=== PATIENT | female | born 1955 | race Caucasian/White ===

== ENCOUNTER → 2016-10-14 | Outpatient (CLI) | payer BC | END | disposition home or self-care (01) | LOC: GMAM 17:21 | PROVIDERS: ATTEND Family Medicine | DX: R82.5 Elevated urine levels of drugs, medicaments and biological substances (principal); R82.99 Other abnormal findings in urine ==

== ENCOUNTER → 2016-10-17 | Outpatient (CLI) | payer BC ==
--- NOTE | 2016-10-18 09:05 | CT ---
EXAM DESCRIPTION: Chest w/Contrast CLINICAL HISTORY: 61 years,Female,COUGH COMPARISON: None TECHNIQUE: Multiple axial helical tomographic images were obtained of the chest with IV contrast, then reconstructed in the sagittal and coronal plane. This exam was performed using radiation doses that are As Low As Reasonably Achievable (ALARA). FINDINGS: Lung ordaz are clear. No consolidations or effusions or nodules except a 4 mm calcified granuloma in the right base. No pneumothoraces. Mediastinum demonstrates no adenopathy or masses. Heart size and pulmonary vascularity are unremarkable. Upper abdominal organs included in the exam demonstrate an ill-defined hyper remake region seen in the right anterior dome of the liver measuring 1.4 cm about in size. Soft tissues and bony elements are unremarkable. IMPRESSION: Unremarkable CT of the chest. There is however a small ill-defined area of enhancement changes seen in the right dome of the liver. This could be an hemangioma but recommend further evaluation with the CT scan of the liver with and without IV contrast but with delayed images. Electronically signed by: Eduar Hurst MD 10/18/2016 9:04 AM CDT
== END ==
LOC: CT 08:28
PROVIDERS: ATTEND Family Medicine
DX: R05 Cough (principal)

== ENCOUNTER → 2016-10-28 | Outpatient (CLI) | payer BC | END | disposition home or self-care (01) | LOC: GMAM 14:36 | PROVIDERS: ATTEND Family Medicine | DX: R82.99 Other abnormal findings in urine (principal) ==

== ENCOUNTER → 2016-11-19 | Outpatient (CLI) | payer BC ==
--- NOTE | 2016-11-19 11:48 | CT ---
EXAM DESCRIPTION: CT ABDOMEN AND PELVIS WITHOUT AND WITH CONTRAST CLINICAL HISTORY: NONSPECIFIC FINDINGS ON EXAM OF URINE COMPARISON: None Available. TECHNIQUE: CT of the abdomen and pelvis are performed prior to and during IV bolus administration of nonionic IV contrast. Oral contrast enhancement was not utilized This exam was performed according to our departmental dose-optimization program, which includes automated exposure control, adjustment of the mA and/or kV according to patient size and/or use of iterative reconstruction technique. FINDINGS: The lung bases demonstrate a tiny 3 mm calcified granuloma in the posterior right costophrenic angle and mild scarring anteriorly. Mild diffuse fatty replacement of the liver is present. There is a tiny estimated less than 1 cm faintly enhancing lesion in the lateral dome of the right lobe of the liver that is most suspicious for a small hemangioma. Correlation with hepatic sonography for further evaluation is recommended. The gallbladder is normally distended without ductal dilation and a small normal spleen is present. The pancreas normally enhances. The adrenal glands are normal. The kidneys normally enhance without obstruction cyst or mass. Delayed imaging demonstrates a single collecting system on each side with contrast distending the bladder. Vena cava and aorta are normal without retroperitoneal or mesenteric abnormal adenopathy Small and large bowel caliber is normal. Diverticulosis of the left colon is present. The uterus is anteverted without pelvic fluid collection or adnexal mass. The bladder is incompletely distended. The anterior abdominal wall and inguinal regions are normal. The spine and pelvis are unremarkable. IMPRESSION: 1. Very subtle subcentimeter faint enhancement at the lateral dome of the right lobe of the liver suspicious for a small hemangioma. Consider hepatic sonography for further evaluation. 2. Mild diffuse fatty infiltration of the liver. 3. Left colonic diverticulosis. 4. Tiny calcified granuloma right posterior lung base. 5. Incompletely distended bladder with no gross abnormality seen. Electronically signed by: Luis Eduardo Wheeler MD 11/19/2016 11:46 AM CDT
== END | disposition home or self-care (01) ==
LOC: CT 17:04
PROVIDERS: ATTEND Family Medicine
DX: R82.5 Elevated urine levels of drugs, medicaments and biological substances (principal); R93.8 Abnormal findings on diagnostic imaging of other specified body structures; K76.0 Fatty (change of) liver, not elsewhere classified; K57.30 Diverticulosis of large intestine without perforation or abscess without bleeding

== ENCOUNTER → 2016-12-16 | Outpatient (CLI) | payer BC ==
--- NOTE | 2016-12-16 19:39 | US ---
EXAM DESCRIPTION: Liver, and ultrasound. CLINICAL HISTORY: FATTY LIVER COMPARISON: CT abdomen and pelvis 11/19/2016. TECHNIQUE: Transabdominal scannin-dimensional and Doppler modes. FINDINGS: The gallbladder is normal in size, shape, and echogenicity, with no intraluminal stones or sludge. Prominent fold in the gallbladder. No fluid around the gallbladder. No wall thickening. 1.8 mm. Common bile duct caliber is 3.4 mm which is within normal limits. . No stones in the visualized portion of the duct. Not tender with transducer pressure. The liver demonstrates normal echogenicity; contour of the liver capsule is smooth where seen. No fluid around the liver. Intrahepatic biliary ducts are non-dilated. Craniocaudal dimension in the mid-clavicular axis is 13.6 cm. Pancreas head, body, tail normal in size and echogenicity. Pancreatic duct is not dilated. IMPRESSION: 1. Liver is not enlarged and demonstrates normal echogenicity. Normal intrahepatic ducts. No ascites. Normal ultrasound of the pancreas. 2. Gallbladder with prominent fold but no stones or sludge. No wall thickening or pericholecystic fluid. Normal caliber of the common bile duct. Electronically signed by: Ron Arguelles MD 12/16/2016 7:37 PM CDT Workstation: [id number]
== END | disposition home or self-care (01) ==
LOC: US 11:47
PROVIDERS: ATTEND Family Medicine
DX: K70.0 Alcoholic fatty liver (principal)

== ENCOUNTER → 2017-02-17 | Outpatient (CLI) | payer BC | LOC: RAD 09:48 | PROVIDERS: ATTEND Obstetrics & Gynecology | DX: Z12.31 Encounter for screening mammogram for malignant neoplasm of breast (principal) | CPT/HCPCS: 77063; G0202 ==

== ENCOUNTER → 2018-01-07 | Outpatient (CLI) | payer BC, OTHER ==
--- NOTE | 2018-01-08 08:49 | CT ---
Procedure: CT LUNG SCREENING Exam Date: 01/07/2018 Ordering Provider: Curt Cummins Clinical Indication: TOBACCO USE over 40 years of smoking. Quit smoking 3 months ago This patient meets eligibility criteria for low-dose CT lung cancer screening. Comparison: CT scan of chest with IV contrast 10/17/2016. Technique: Using a multislice scanner, sequential helical axial imaging was obtained in the thorax, 2.5 mm thickness, 2.5 mm separation, from the level of the thoracic inlet through the lung bases without IV contrast. A low dose protocol was utilized: CTDI: 1.76 mGy. 120. kVp. 45 mA. 2D sagittal and coronal reconstructed images, 6.0 mm thickness, were obtained. This exam was performed according to our departmental dose optimization program which includes use of automated exposure control, adjustment of the mA and/or kV according to patient size and/or use of iterative reconstruction technique. FINDINGS: Lungs and large airways: 4 mm semisolid nodule, with possible calcification, in the upper right apex most likely associated with the pleura. Stable since the prior study. Scarring in the inferior lateral right middle lobe extending from the major fissure to the lateral pleura. 6 mm calcified nodule in the posterior recess of the right lower lobe on axial image 102, stable since the prior study. No abnormal nodules in the left lung. No infiltrate or mass bilaterally. Pleura: No abnormal pleural thickening or effusion. No pneumothorax. Mediastinum and nanette: evaluation limited by low dose technique and lack of IV contrast. No large lymph nodes or soft tissue masses. Heart and great vessels: Normal contour. No atherosclerotic calcification. Chest wall, lower neck, axillae: Evaluation also limited by same factors as described above. No soft tissue masses or abnormal calcifications. Upper abdomen: Included peritoneal cavity with no free fluid. Normal size and density of the spleen. Gallbladder partially visualized. Bones: Evaluation limited by screening MIP technique. Minimal spondylosis at some levels of the thoracic spine. No lytic or blastic lesions. IMPRESSION: Small nodule affiliated with the apical pleura in the right upper lobe is stable. Stable granulomatous nodule with calcification in the posterior recess of the right lower lobe. Please see below for Lung RADS category and FOLLOW-UP.* *Lung RADS category Category 2 - Nodules with a very low likelihood (less than 1%) of becoming a clinically active cancer due to size or lack of growth. Nodules: Solid or part solid nodule(s) less than 6mm, new solid nodule less than 4mm. Follow-up: Continue annual screening with a Low Dose Chest CT in 12 months for re-evaluation. Electronically signed by: Ron Arguelles MD 01/08/2018 8:47 AM CDT
== END ==
LOC: CT 13:00
PROVIDERS: ATTEND Family Medicine
DX: Z87.891 Personal history of nicotine dependence (principal); R91.1 Solitary pulmonary nodule

== ENCOUNTER → 2018-02-23 | Outpatient (CLI) | payer BC, OTHER ==
--- NOTE | 2018-02-24 14:15 | MAM ---
EXAM DESCRIPTION: 3D Screening BILATERAL : Digital Mammography. CLINICAL HISTORY: 62 years Female SCREEN . No complaints. No personal or family history of breast cancer. Childbirth. Postmenopausal 19 years. Currently on HRT. Lifetime risk of developing breast cancer (Tyrer-Cuzick model)(%): 7.0. COMPARISON: Bilateral screening digital breast tomosynthesis 02/17/2017 TECHNIQUE: Bilateral CC and MLO projection full-field images, digital tomosynthesis mammographic technique. Bilateral digital 2-D full-field MLO images. CAD not available for tomosynthesis or 2-D images. FINDINGS: The breast parenchymal density pattern is: Scattered areas of fibroglandular density. No skin thickening or nipple retraction. No new focal, stellate mass or density, focal asymmetry , and no suspicious microcalcifications bilaterally. Stable mammograms compared to prior study. Taking into account, differences in mammographic technique. IMPRESSION: BI-RADS CATEGORY: 1 - NEGATIVE FOLLOW UP: Routine digital bilateral screening, one year interval from February 2018. Written communication explaining the findings and follow-up, will be mailed to the patient and referring health care provider. According to the [employer], yearly mammograms are recommended starting at age 40 and continuing as long as a woman is in good health. Any breast change noted on a breast self-exam should be reported promptly to the patient's healthcare provider. Breast MRI is recommended for women with an approximately 20-25% or greater lifetime risk of breast cancer, including women with a strong family history of breast or ovarian cancer and women who have been treated for Hodgkin's disease. A negative mammographic report should not delay tissue diagnosis in patients with significant clinical history or physical findings. Extremely dense breast tissue limits the sensitivity of digital mammography. Electronically signed by: Ron Arguelles MD 02/24/2018 2:13 PM [facility]
== END ==
LOC: MAMMO 13:30
PROVIDERS: ATTEND Family Medicine
DX: Z12.31 Encounter for screening mammogram for malignant neoplasm of breast (principal)

== ENCOUNTER → 2018-07-13 | Outpatient (CLI) | payer BC | LOC: GMAJS 17:07 | PROVIDERS: ATTEND Physician Assistant | DX: R06.02 Shortness of breath (principal); F41.1 Generalized anxiety disorder ==